=== PATIENT | female | born 1940 | race Hispanic/Latino ===

== ENCOUNTER 2017-01-30 15:32 | Emergency (ER) | payer MEDICARE ==
[2017-01-30 15:38] VITALS: BMI 30.7
[2017-01-30 15:43] VITALS: RESP 19; TEMP 98.2; O2SAT 97
--- NOTE | 2017-01-30 16:13 | ED PDOC ---
Arrival/HPI - General Chief Complaint: Lower Extremity Problem/Injury Time Seen by Provider: 01/30/17 15:54 Historian: Patient - History of Present Illness Narrative History of Present Illness (Text): 01/30/17 16:08 A 76 year old female, whose past medical history includes dyslipidemia, presents to the emergency department complaining of discoloration to bilateral toes for the past few weeks. Patient states her toes are much darker in color compared to the rest of her lower extremities. Patient notes she experiences bilateral leg swelling when standing for long periods of time. She denies any swelling at this time, fever, chills, chest pain, shortness of breath, dyspnea on exertion or any other complaints. Time/Duration: Other (few weeks) Symptom Course: Unchanged Quality: Other Context: Home Past Medical History - Provider Review Nursing Documentation Reviewed: Yes - Infectious Disease Hx of Infectious Diseases: None - Cardiac Hx Cardiac Disorders: Yes Hx Hypertension: Yes - Psychiatric Hx Substance Use: No - Surgical History Hx Appendectomy: Yes Hx Tonsillectomy: Yes - Anesthesia Hx Anesthesia: Yes Hx Anesthesia Reactions: No Family/Social History - Physician Review Nursing Documentation Reviewed: Yes Family/Social History: No Known Family HX Smoking Status: Heavy Smoker > 10 Cigarettes Daily Hx Alcohol Use: Yes Frequency of alcohol use: Socially Hx Substance Use: No Allergies/Home Meds Allergies/Adverse Reactions: Allergies No Known Allergies Allergy (Verified 01/30/17 15:37) Home Medications: Home Meds Medication Instructions Recorded Confirmed Atorvastatin [Lipitor] 40 mg PO HS 01/30/17 01/30/17 Physical Exam - Physical Exam Narrative Physical Exam (Text): - Review of Systems Constitutional: Normal. absent: Fatigue, Weight Change, Fevers Eyes: Normal ENT: Normal Respiratory: Normal absent: SOB, Cough, Sputum Cardiovascular: Normal absent: Chest pain, Palpitations, Syncope Gastrointestinal: Normal absent: Abdominal pain, Diarrhea, Nausea, Vomiting Genitourinary: Normal. absent: Dysuria, Frequency, Hematuria Musculoskeletal: (+) Bilateral leg swelling, currently asymptomatic absent: Arthralgias, Back Pain, Neck Pain Skin: (+) Discoloration to bilateral toes Neurological: Normal absent: Focal Weakness Endocrine: Normal Hemo/Lymphatic: Normal Psychiatric: Normal - Physical exam Patient appears age appropriate, speaking full sentences without difficulty - Systems Exam Head: Present: Atraumatic, Normocephalic Pupils: Present: PERRL Extraocular Muscles: Present: EOMI Conjunctiva: Present: Normal Mouth: Present: Moist Mucous Membranes Neck: Present: Normal Range of Motion. No: MIDLINE TENDERNESS, Paraspinal Tenderness Respiratory/Chest: Present: Clear to Auscultation, Good Air Exchange. No: Respiratory Distress, Accessory Muscle Use, Tachypnic Cardiovascular: Present: Regular Rate and Rhythm, Normal S1, S2, Peripheral Pulses Present. No: Murmurs Abdomen: Present: Normal Bowel Sounds, No: Tenderness, Peritoneal Signs, Rebound, Guarding, Distention Back: Present: Normal Inspection. No: Midline Tenderness, Paraspinal Tenderness Upper Extremity: Present: Normal Inspection. No: Cyanosis, Edema Lower Extremity: Present: Normal Inspection. No: Edema Neurological: Present: GCS=15, Speech Normal, cranial nerves II through XII fully intact with no cerebellar abnormality, neuro-sensory fully intact. No focal neurological deficits. Skin: Present: Warm, Dry, Normal Color. No: Rashes Lymphatic: Present: OX3, NI, NC Psychiatric: Present: Alert, Oriented x 3, Normal Insight, Normal Concentration Vital Signs Reviewed: Yes Vital Signs Temp Pulse Resp BP Pulse Ox 01/30/17 15:41 98.2 F 103 H 19 149/76 97 Temperature: Afebrile Blood Pressure: Normal Pulse: Tachycardic Respiratory Rate: Normal Appearance: Positive for: Well-Appearing, Non-Toxic, Comfortable Pain Distress: None Mental Status: Positive for: Alert and Oriented X 3 Medical Decision Making ED Course and Treatment: 01/30/17 16:08 Impression: A 76 year old female with discoloration to bilateral toes and intermittent bilateral lower extremity swelling, currently asymptomatic. No acute findings on exam. Clear bilateral breath sounds, no edema or swelling, good skin color, positive pedal pulses bilaterally. Based on history and physical exam, no suspicion for acute CHF. Progress Notes: I have discussed the plan with the patient, who expresses understanding. Patient instructed to follow up with Dr. Roper for further work-up, including non-emergent labs and imaging. tachycardia resolved without intervention Pt states she understands to return to the ER right away for new or worsening symptoms or for inability to f/u with PMD or specialist as instructed. Patient states that she fully agrees with and understands discharge instructions. States that she agrees with the plan and disposition. Verbalized and repeated discharge instructions and plan. I have given the patient opportunity to ask any additional questions. - Scribe Statement The provider has reviewed the documentation as recorded by the Rosarioibfranky Romero Provider Scribe Attestation: All medical record entries made by the Scribe were at my direction and personally dictated by me. I have reviewed the chart and agree that the record accurately reflects my personal performance of the history, physical exam, medical decision making, and the department course for this patient. I have also personally directed, reviewed, and agree with the discharge instructions and disposition. Disposition/Present on Arrival - Present on Arrival Any Indicators Present on Arrival: No History of DVT/PE: No History of Uncontrolled Diabetes: No Urinary Catheter: No History of Decub. Ulcer: No History Surgical Site Infection Following: None - Disposition Have Diagnosis and Disposition been Completed?: Yes Diagnosis: Discoloration of skin of lower leg Disposition: HOME/ ROUTINE Disposition Time: 16:02 Patient Plan: Discharge Patient Problems: Current Active Problems Problem Status Onset Discoloration of skin of lower leg Acute Condition: GOOD Discharge Instructions (ExitCare): Leg Edema (ED) Additional Instructions: PLEASE RETURN TO THE EMERGENCY DEPARTMENT FOR NEW OR WORSENING SYMPTOMS. RETURN RIGHT AWAY IF YOU CANNOT FOLLOW UP WITH YOUR PRIMARY CARE DOCTOR, CLINIC, OR SPECIALIST IN 1-2 DAYS. Referrals: Fredis Roper MD [Staff Provider] - Follow up with primary
--- NOTE | 2017-01-30 16:16 | ED PDOC ---
Arrival/HPI - General Chief Complaint: Lower Extremity Problem/Injury Time Seen by Provider: 01/30/17 15:54 Past Medical History - Infectious Disease Hx of Infectious Diseases: None - Cardiac Hx Cardiac Disorders: Yes Hx Hypertension: Yes - Psychiatric Hx Substance Use: No - Surgical History Hx Appendectomy: Yes Hx Tonsillectomy: Yes - Anesthesia Hx Anesthesia: Yes Hx Anesthesia Reactions: No Family/Social History Smoking Status: Heavy Smoker > 10 Cigarettes Daily Hx Alcohol Use: Yes Frequency of alcohol use: Socially Hx Substance Use: No Allergies/Home Meds Allergies/Adverse Reactions: Allergies No Known Allergies Allergy (Verified 01/30/17 15:37) Home Medications: Home Meds Medication Instructions Recorded Confirmed Atorvastatin [Lipitor] 40 mg PO HS 01/30/17 01/30/17 Physical Exam Vital Signs Temp Pulse Resp BP Pulse Ox 01/30/17 15:41 98.2 F 103 H 19 149/76 97 Disposition/Present on Arrival - Present on Arrival Any Indicators Present on Arrival: No History of DVT/PE: No History of Uncontrolled Diabetes: No Urinary Catheter: No History of Decub. Ulcer: No History Surgical Site Infection Following: None - Disposition Have Diagnosis and Disposition been Completed?: Yes Diagnosis: Discoloration of skin of lower leg Disposition: HOME/ ROUTINE Disposition Time: 16:02 Patient Plan: Discharge Condition: GOOD Discharge Instructions (ExitCare): Leg Edema (ED) Additional Instructions: PLEASE RETURN TO THE EMERGENCY DEPARTMENT FOR NEW OR WORSENING SYMPTOMS. RETURN RIGHT AWAY IF YOU CANNOT FOLLOW UP WITH YOUR PRIMARY CARE DOCTOR, CLINIC, OR SPECIALIST IN 1-2 DAYS. Referrals: Fredis Roper MD [Staff Provider] - Follow up with primary
[2017-01-30 16:54] VITALS: BP 140/69; PULSE 85
== END 2017-01-30 16:30 | disposition home or self-care (01) ==
LOC: ED 15:32
DX: L98.8 Other specified disorders of the skin and subcutaneous tissue (principal); E78.5 Hyperlipidemia, unspecified; I10 Essential (primary) hypertension; F17.210 Nicotine dependence, cigarettes, uncomplicated

== ENCOUNTER 2017-05-14 09:06 | Emergency (ER) | payer MEDICARE ==
[2017-05-14 09:07] VITALS: BMI 30.7
[2017-05-14 09:13] VITALS: TEMP 98
--- NOTE | 2017-05-14 09:47 | ED PDOC ---
Arrival/HPI - General Chief Complaint: Headache Time Seen by Provider: 05/14/17 09:42 - History of Present Illness Narrative History of Present Illness (Text): 76 y/o F c PMHx HTN, HLD p/w eye discomfort x 5 days. Patient states that both of her eyelids have been puffy. She notes that the R eye is with intermittent irritation to the lateral eyelid that makes her flutter the eyelid. She denies vision change, discharge, foreign body, significant pain, pain with eye movement. She also notes a pain in a focal area over the R posterior trapezius which she states she gets all the time from sleeping on the couch. Denies fever , dyspnea, vomiting, numbness, weakness. Past Medical History - Infectious Disease Hx of Infectious Diseases: None - Cardiac Hx Cardiac Disorders: Yes Hx Hypertension: Yes - Pulmonary Hx Respiratory Disorders: No - Neurological Hx Neurological Disorder: No - HEENT Hx HEENT Disorder: No Hx Blind: No - Renal Hx Renal Disorder: No - Endocrine/Metabolic Hx Endocrine Disorders: No - Hematological/Oncological Hx Blood Disorders: No Hx AIDS: No - Integumentary Hx Dermatological Disorder: No - Musculoskeletal/Rheumatological Hx Musculoskeletal Disorders: No - Gastrointestinal Hx Gastrointestinal Disorders: No - Genitourinary/Gynecological Hx Genitourinary Disorders: No - Psychiatric Hx Psychophysiologic Disorder: No Hx Substance Use: No - Surgical History Hx Appendectomy: Yes Hx Tonsillectomy: Yes - Anesthesia Hx Anesthesia: Yes Hx Anesthesia Reactions: No Family/Social History Family/Social History: No Known Family HX Smoking Status: Heavy Smoker > 10 Cigarettes Daily Hx Alcohol Use: No Hx Substance Use: No Allergies/Home Meds Allergies/Adverse Reactions: Allergies No Known Allergies Allergy (Verified 05/14/17 09:13) Home Medications: Home Meds Medication Instructions Recorded Confirmed Atorvastatin [Lipitor] 10 mg PO DAILY 01/30/17 05/14/17 hydroCHLOROthiazide [Microzide] 12.5 mg PO DAILY 05/14/17 05/14/17 Review of Systems - Physician Review All systems were reviewed & negative as marked: Yes - Review of Systems Constitutional: absent: Fevers Eyes: absent: Vision Changes, Photophobia Respiratory: absent: SOB Physical Exam - Physical Exam Narrative Physical Exam (Text): Gen: NAD Head: NC/AT Eyes: EOMI. PERRL. No discharge. No chalazion. No pain with EOM. No hyphema. No conjunctival injection. Bilateral upper eyelids with mild swelling and mild erythema, nontender. ENT: MMM Neck: Supple. No midline tenderness. No pulsatile mass. FROM. CV: Regular rate. Radial pulses 2+. Neuro: Alert, no focal deficit. Motor 5/5 x 4. Vital Signs Temp Pulse Resp BP Pulse Ox 05/14/17 09:56 94 H 17 158/80 H 98 05/14/17 09:10 98 F 99 H 16 162/89 H 97 Medical Decision Making ED Course and Treatment: Will treat as local irritation/allergen with eye drops. Given instructions to return for any pain, fever, vision change, discharge, worsening erythema, numbness, or weakness. F/u Ophtho. Disposition/Present on Arrival - Present on Arrival Any Indicators Present on Arrival: No History of DVT/PE: No History of Uncontrolled Diabetes: No Urinary Catheter: No History of Decub. Ulcer: No History Surgical Site Infection Following: None - Disposition Have Diagnosis and Disposition been Completed?: Yes Diagnosis: Eye irritation Disposition: HOME/ ROUTINE Disposition Time: 09:43 Patient Plan: Discharge Condition: STABLE Discharge Instructions (ExitCare): Eye Pain (ED) Prescriptions: Carboxymethylcellulose Sodium [Refresh Tears] 1 drop OP Q2H PRN #15 ml PRN Reason: Dry Eyes Referrals: Fredis Roper MD [Primary Care Provider] - Follow up with primary Donaldo Akbar [Staff Provider] - Follow up with primary Forms: [employer] (Cuban)
[2017-05-14 09:58] VITALS: BP 158/80; PULSE 94; RESP 17; O2SAT 98
== END 2017-05-14 09:58 | disposition home or self-care (01) ==
LOC: ED 09:06
DX: H57.8 Other specified disorders of eye and adnexa (principal); E78.5 Hyperlipidemia, unspecified; F17.210 Nicotine dependence, cigarettes, uncomplicated; I10 Essential (primary) hypertension